=== PATIENT | male | born 2000 | race Caucasian/White ===

== ENCOUNTER 2020-11-14 19:02 | Emergency (ER) | payer MEDICAID ==
[~2020-11-14] VITALS: Ht 172.7 cm; Wt 71.0 kg
[2020-11-14 19:12] VITALS: BP 115/74
[2020-11-14] MEDS ORDERED: KETOROLAC 30 MG/1 ML IM ONE (21:00)
[2020-11-14] MEDS ORDERED: KETOROLAC 60 MG/2 ML ONE (21:03)
== END 2020-11-14 21:15 | disposition home or self-care (01) ==
LOC: ED 21:09
DX: K64.5 Perianal venous thrombosis (principal)
CPT/HCPCS: 96372; 99283; J1885

== ENCOUNTER 2020-11-18 10:29 | Emergency (ER) | payer MEDICAID ==
[~2020-11-18] VITALS: Ht 172.7 cm; Wt 71.0 kg
[2020-11-18] MEDS ORDERED: ONDANSETRON 2MG/ML, 2ML ONE (11:12)
[2020-11-18] MEDS ORDERED: SODIUM CHLORIDE 0.9% 1,000 ML IV ONE (11:30)
[2020-11-18] MEDS ORDERED: ONDANSETRON 2MG/ML, 2ML IVPush ONE (11:30)
[2020-11-18] MEDS ORDERED: SODIUM CHLORIDE 0.9% 1,000ML IVBOLUS ONE (11:30)
[2020-11-18] MEDS ORDERED: SODIUM CHLORIDE FLUSH 10ML SYR IVF ONE (11:30)
[2020-11-18 11:40] LABS: BASOPHILS % (AUTO) 1 % (0-1); EOSINOPHILS % (AUTO) 2 % (1-7); LYMPHOCYTES % (AUTO) 26 % (22-44); MEAN CORPUSCULAR HEMOGLOBIN 29.3 pg (27.5-34.5); MEAN CORPUSCULAR HGB CONC 34.9 g/dL (33.2-36.2); MEAN PLATELET VOLUME 7.1 fL (7.4-10.4); MONOCYTES % (AUTO) 12 % (2-9); NEUTROPHILS % (AUTO) 59 % (42-75); PLATELET COUNT 268 x10^3/uL (130-400); RED CELL DISTRIBUTION WIDTH 14.5 % (9.4-14.8)
[2020-11-18 11:46] LABS: ALANINE AMINOTRANSFERASE 24 U/L (12-78); ALBUMIN 4.5 g/dL (3.4-5.0); ANION GAP 4 mmol/L (5-15); CALCIUM 9.6 mg/dL (8.5-10.1); CHLORIDE 108 mmol/L (98-107); CREATININE 1.14 mg/dL (0.7-1.3)
--- NOTE | 2020-11-18 11:48 | NUR ---
PT C/O LOSS OF APPETITE, LOST OF TASTE, AND SOB THAT STARTED A COUPLE DAYS AGO. 20 G IV STARTED IN RIGHT AC, BLOOD SENT TO LAB. PT IN BED IN GOWN WITH CONT CARDIAC MONITOPR, SPO2, BPQ 30 MIN. SIDE RAILS UP X2, CALL LIGHT IN REACH. WENT OVER PLAN OF CARE FROM ORDER LIST, AGREES TO PLAN.
[2020-11-18 11:49] LABS: ALKALINE PHOSPHATASE 69 U/L (45-117); BILIRUBIN,TOTAL 0.7 mg/dL (0.2-1.0); TOTAL PROTEIN 8.3 g/dL (6.4-8.2)
[2020-11-18] MEDS ORDERED: MAALOX/HYOSCYAMINE/LIDOCAINE 45 ML BTL PO ONE (12:30)
--- NOTE | 2020-11-18 12:48 | NUR ---
BREAK RN: PT RESTING ON Familio PLAYING ON PHONE. IVF BAG REPOSITIONED HIGHER TO FACILITATE DRIP RATE. PT AWARE OF NEED FOR URINE SAMPLE. PT CONNECTED TO ALL MONITORING.
[2020-11-18] MEDS ORDERED: MAALOX/HYOSCYAMINE/LIDOCAINE 45 ML BTL ONE (12:55)
[2020-11-18] MEDS ORDERED: METOCLOPRAMIDE 5 MG/ML, 2ML IVPush ONE (14:00)
[2020-11-18] MEDS ORDERED: METOCLOPRAMIDE 5 MG/ML, 2ML ONE (14:02)
--- NOTE | 2020-11-18 14:10 | NUR ---
PT BACK FROM CT
[2020-11-18] MEDS ORDERED: OMNIPAQUE 350 MG/ML, 100ML BOTTLE ONE (14:30)
[2020-11-18 14:37] LABS: MICROSCOPIC AUTO
[2020-11-18 14:43] VITALS: BP 124/74
== END 2020-11-18 14:45 | disposition home or self-care (01) ==
LOC: ED 11:53
DX: U07.1 COVID-19 (principal); B34.9 Viral infection, unspecified; R06.02 Shortness of breath; R00.1 Bradycardia, unspecified
CPT/HCPCS: 36415; 71045; 74177; 80053; 81001; 85025; 93005; 96361; 96374; 96375; 99285; J2405; J2765; J7030; Q9967; U0003; U0005